=== PATIENT | female | born 1945 | race Caucasian/White ===

== ENCOUNTER → 2020-11-25 | Outpatient (CLI) | payer MEDICARE ==
[~2020-11-25] MED LIST: REGADENOSON 0.4 MG/5 ML SYRINGE ONE
== END | disposition home or self-care (01) ==
LOC: CFH 07:51
PROVIDERS: ATTEND Internal Medicine Cardiovascular Disease
DX: I08.3 Combined rheumatic disorders of mitral, aortic and tricuspid valves (principal); R03.0 Elevated blood-pressure reading, without diagnosis of hypertension; I48.91 Unspecified atrial fibrillation
CPT/HCPCS: 78452; 93017; 93306; A9502; J2785

== ENCOUNTER 2020-12-30 13:31 | Day surgery (SDC) | payer MEDICARE ==
[2020-12-30] MEDS ORDERED: SODIUM CHLORIDE 0.9% 1,000 ML IV ONE (16:00)
[2020-12-30] MEDS ORDERED: CBD oil PO (16:05)
[2020-12-30] MEDS ORDERED: ACET325C6 PO (16:05)
[2020-12-30] MEDS ORDERED: AMIO200T42 PO (16:05)
[2020-12-30] MEDS ORDERED: APIX5TAB PO (16:06)
[2020-12-30] MEDS ORDERED: CYCL10TA2 PO (16:07)
[2020-12-30] MEDS ORDERED: FLUT9.9S NAS (16:11)
[2020-12-30] MEDS ORDERED: potassium (16:11)
[2020-12-30] MEDS ORDERED: flovent (16:11)
[2020-12-30 16:32] LABS: ANION GAP 10 mmol/L (5-15); CALCIUM 9.2 mg/dL (8.5-10.1); CHLORIDE 108 mmol/L (98-107); CREATININE 0.74 mg/dL (0.55-1.02)
[2020-12-30] MEDS ORDERED: PROPOFOL 10 MG/ML, 20ML ONE (16:37)
== END 2020-12-30 17:30 | disposition home or self-care (01) ==
LOC: CACL 13:31
PROVIDERS: ATTEND Internal Medicine Cardiovascular Disease
DX: I48.91 Unspecified atrial fibrillation (principal); I08.3 Combined rheumatic disorders of mitral, aortic and tricuspid valves; E78.5 Hyperlipidemia, unspecified; G47.30 Sleep apnea, unspecified; E66.3 Overweight; Z20.822 Contact with and (suspected) exposure to COVID-19; Z68.36 Body mass index [BMI] 36.0-36.9, adult; Z79.01 Long term (current) use of anticoagulants; Z79.899 Other long term (current) drug therapy; Z88.0 Allergy status to penicillin; Z88.7 Allergy status to serum and vaccine
CPT/HCPCS: 36415; 80048; 87635; 92960; 93312; 93325; J2704

== ENCOUNTER 2021-01-14 11:57 | Day surgery (SDC) | payer MEDICARE ==
[~2021-01-14] VITALS: Ht 157.5 cm; Wt 91.8 kg
[~2021-01-14 11:57] MED LIST changes: +ACET325C6 PO; +AMIO200T42 PO; +APIX5TAB PO; +CBD oil PO; +CYCL10TA2 PO; +FLUT9.9S NAS; -REGADENOSON 0.4 MG/5 ML SYRINGE ONE; +flovent; +potassium
[2021-01-14] MEDS ORDERED: Vitamin D (12:24)
[2021-01-14] MEDS ORDERED: HYDR20TA24 PO (12:24)
[2021-01-14 12:33] VITALS: BP 152/101
[2021-01-14 13:12] LABS: ANION GAP 10 mmol/L (5-15); CALCIUM 9.3 mg/dL (8.5-10.1); CHLORIDE 108 mmol/L (98-107); CREATININE 0.85 mg/dL (0.55-1.02)
[2021-01-14] MEDS ORDERED: PROPOFOL 10 MG/ML, 20ML ONE (14:01)
== END 2021-01-14 14:25 | disposition home or self-care (01) ==
LOC: CACL 11:57
PROVIDERS: ATTEND Internal Medicine Cardiovascular Disease
DX: I48.4 Atypical atrial flutter (principal); I48.91 Unspecified atrial fibrillation; Z88.0 Allergy status to penicillin; Z88.7 Allergy status to serum and vaccine; Z88.8 Allergy status to other drugs, medicaments and biological substances; Z79.01 Long term (current) use of anticoagulants; Z79.899 Other long term (current) drug therapy
CPT/HCPCS: 36415; 80048; 92960; J2704

== ENCOUNTER 2021-02-17 06:16 | Observation (INO) | payer MEDICARE ==
[~2021-02-17] VITALS: Ht 157.5 cm; Wt 94.1 kg
[~2021-02-17 06:16] MED LIST changes: +HYDR20TA24 PO; +Vitamin D
[2021-02-17] MEDS ORDERED: LOSA100T14 PO (07:39)
[2021-02-17] MEDS ORDERED: LIDOCAINE 1%, 20ML ONE (07:51)
[2021-02-17] MEDS ORDERED: SODIUM CHLORIDE 0.9% 1,000 ML IV SCH (08:00)
[2021-02-17] MEDS ORDERED: FENTANYL PF 250 MCG/5ML ONE (08:05)
[2021-02-17] MEDS ORDERED: NEOSTIGMINE 1 MG/ML, 10ML ONE (08:16)
[2021-02-17] MEDS ORDERED: HEPARIN/D5W 25,000 UNITS/250 ML PREMIX ONE (08:16)
[2021-02-17] MEDS ORDERED: GLYCOPYRROLATE 0.2MG/1ML, 5ML ONE (08:16)
[2021-02-17] MEDS ORDERED: HYDROCORTISONE 100 MG INJ. ONE (08:18)
[2021-02-17 08:35] LABS: INTERNATIONAL NORMALIZED RATIO 1.08 (0.93-1.1); PROTHROMBIN TIME 11.5 Seconds (9.6-11.5)
[2021-02-17] MEDS ORDERED: PROPOFOL 10 MG/ML, 20ML ONE (09:39)
[2021-02-17] MEDS ORDERED: ROCURONIUM 10MG/ML,5ML ONE (09:39)
[2021-02-17] MEDS ORDERED: ALBUTEROL SULFATE 2.5 MG/3 ML NPPB PRN (10:00)
[2021-02-17] MEDS ORDERED: HYDROmorphone 1 MG/ML, 1ML INJ IVPush PRN (10:00)
[2021-02-17] MEDS ORDERED: DIPHENHYDRAMINE 50 MG/ML, 1ML IVPush PRN ×2 (10:00)
[2021-02-17] MEDS ORDERED: MIDAZOLAM 1 MG/ML, 2ML IV PRN (10:00)
[2021-02-17] MEDS ORDERED: LABETALOL 5MG/ML, 20ML IV PRN (10:00)
[2021-02-17] MEDS ORDERED: OXYcodone 5 MG/5 ML ORAL.SOL UDC PO PRN (10:00)
[2021-02-17] MEDS ORDERED: EPHEDRINE 50 MG/ML, 1ML IVPush PRN (10:00)
[2021-02-17] MEDS ORDERED: FENTANYL PF 100 MCG/2ML IV PRN (10:00)
[2021-02-17] MEDS ORDERED: ONDANSETRON 2MG/ML, 2ML IVPush PRN ×2 (10:00)
[2021-02-17] MEDS ORDERED: hydrALAzine 20 MG/ML, 1ML IV PRN (10:00)
[2021-02-17] MEDS ORDERED: PROMETHAZINE 25 MG/ML, 1ML IVPush PRN (10:00)
[2021-02-17] MEDS ORDERED: DIAZEPAM 5 MG/ML, 2ML IVPush PRN (10:00)
[2021-02-17] MEDS ORDERED: ZOLPIDEM 5MG TABLET PO PRN (10:00)
[2021-02-17] MEDS ORDERED: MEPERIDINE/PF 25MG/0.5ML IVPush PRN (10:00)
[2021-02-17] MEDS ORDERED: ACETAMINOPHEN 325 MG TABLET PO PRN ×2 (10:00)
[2021-02-17] MEDS ORDERED: PROMETHAZINE 12.5 MG SUPP PR PRN (10:00)
[2021-02-17] MEDS ORDERED: PLEASE ENTER HEIGHT AND WEIGHT MC SCH (11:00)
[2021-02-17] MEDS ORDERED: ONDANSETRON 2MG/ML, 2ML ONE (11:21)
[2021-02-17 12:59] VITALS: BP 141/85
[2021-02-17] MEDS: APIXABAN 5 MG TABLET PO SCH (20:43)
[2021-02-17 20:44] VITALS: BP 133/73
[2021-02-17] MEDS ORDERED: APIXABAN 5 MG TABLET PO SCH (21:00)
[2021-02-18 01:17] VITALS: BP 132/75
[2021-02-18 07:22] VITALS: BP 133/76
[2021-02-18] MEDS: APIXABAN 5 MG TABLET PO SCH (08:39)
[2021-02-18] MEDS ORDERED: AMIODARONE 200 MG TABLET PO SCH (09:00)
[2021-02-18] MEDS ORDERED: LOSARTAN 100 MG TAB PO SCH (09:00)
[2021-02-18] MEDS ORDERED: CYCLOBENZAPRINE 10 MG TABLET PO SCH (09:00)
[2021-02-18] MEDS ORDERED: CYCL10TA2 PO (10:45)
[2021-02-18] MEDS ORDERED: COLC0.6C3 PO (10:45)
== END 2021-02-18 11:33 | disposition home or self-care (01) ==
LOC: OUT 06:16 → ORIP 09:40 → 5SO 11:18
PROVIDERS: ADMIT Internal Medicine Cardiovascular Disease; ATTEND Internal Medicine Cardiovascular Disease
DX: I48.91 Unspecified atrial fibrillation (principal); Z20.822 Contact with and (suspected) exposure to COVID-19; I48.3 Typical atrial flutter; I10 Essential (primary) hypertension; E66.9 Obesity, unspecified; Z79.01 Long term (current) use of anticoagulants; Z79.899 Other long term (current) drug therapy; Z87.891 Personal history of nicotine dependence; Z68.37 Body mass index [BMI] 37.0-37.9, adult
CPT/HCPCS: 36415; 85610; 85730; 87635; 93005; 93308; 93321; 93325; 93462; 93613; 93621; 93653; 93662; 96374; C1730; C1732; C1759; C1766; C1893; C1894; G0378; J1720; J2405; J2704; J2710; J3010; J3490